=== PATIENT | female | born 1995 | race Caucasian/White ===

== ENCOUNTER 2024-06-22 21:26 | Emergency (ER) | payer OTHER ==
[~2024-06-22] VITALS: Ht 172.7 cm; Wt 59.0 kg
[2024-06-22] MEDS ORDERED: AZIT250T PO (23:17)
[2024-06-22] MEDS ORDERED: BENZ-13 PO (23:17)
[2024-06-22 23:24] VITALS: BP 136/70; TEMP 97.8; O2SAT 99
== END 2024-06-22 23:24 | disposition home or self-care (01) ==
LOC: ER 21:31
DX: J40 Bronchitis, not specified as acute or chronic (principal); Z20.822 Contact with and (suspected) exposure to COVID-19
CPT/HCPCS: 71045-TC